=== PATIENT | female | born 1990 | race Two or more races ===

== ENCOUNTER 2025-07-24 02:55 | Inpatient (IN) | payer MEDICAID, OTHER ==
[~2025-07-24] VITALS: Ht 177.8 cm; Wt 129.7 kg
--- NOTE | 2025-07-24 03:23 | ED.PDOC ---
General HPI Comments HPI: 35-year-old female who came to ER for flank pains. As of 9:00 p.m. last night, patient started having sharp right flank pains, radiating her suprapubic area, associated with nausea and vomiting. Denies any dysuria. Patient unsure if she is Past Medical History: Kidney infection, Colitis Surgical History: Denies Family History: Denies Personal and Social History: Denies BROWNE: FLANK PAIN HPI: Poor Historian. REVIEW OF SYSTEMS: CONSTITUTIONAL: Denies acute: fever, diaphoresis, chills, generalized weakness. HEAD: Denies acute: headache, photophobia Eyes: Denies acute: Double vision, vision loss, eye pain, eye discharge. EARS: Denies acute: tinnitus, hearing loss, ear discharge, ear pain, THROAT: Denies acute: sore throat, swelling, difficulty swallowing , pain with swallowing, change in voice. NECK: Denies acute: neck pain, neck swelling, stiff neck. HEART: Denies acute : chest pain, palpitations, LUNGS: Denies acute: SOB, wheezing, cough, hemoptysis ABDOMEN: Denies acute: , diarrhea, melena , hematemesis, hematochezia SKIN: Denies acute: rash, redness, lesions, itchiness. EXTREMITIES: Denies acute: calf pain, numbness, tingling, weakness, denies pain in extremity. Denies acute: Low back pain. Neuro: Denies acute: focal neurological deficit, motor or sensory focal neurological deficit, tremors, seizure like activity, confusion, dizziness, change in mental status, loss of bowel or bladder function, cauda equina like symptoms. : Denies acute: dysuria, hematuria, , increase in urinary frequency. PSYCH: Denies acute: hallucination, suicidal ideation, homicidal ideation. FEMALE: Denies acute: abnormal vaginal bleeding, foul odor, unusual discharge. PHYSICAL EXAM: General: ----moderate----acute distress, awake and alert. Head: normocephalic, atraumatic. No raccoon's eyes, no altamirano sign. Neck: supple, trachea is midline, no swelling. Throat: Normal phonation. Eyes:, no erythema, no purulent discharge, no proptosis, no icterus. Heart: regular rate, regular rhythm, no significant murmur appreciated. Lungs: no apparent respiratory distress, Able to speak in full sentences. No wheezing, no rhonchi, no crackles. No stridors Clear to auscultation bilaterally. Abdomen: Right mid abdomen tender to palpation, non distended, soft, no guarding, no rebound, + bowel sounds. Obese Neuro: Awake, Alert, oriented to name, self, situation, follows commands GCS=15. Speech is normal. Skin: no petechia, no purpura, no cyanosis, non-pale, not jaundice. Lower extremities: --no - Pitting edema no deformity, no focal swelling, no calf TTP. Makes eye contact. moves all four extremities. Face: no apparent facial droop. Right CVA tenderness to percussion . Ambulating in the ED independently. ED COURSE: DISCLAIMER: This medical document was created using an electronic medical record system with voice recognition software and computerized dictation system. Although this document has been carefully reviewed, there might still be some phonetic and typographical errors. Occasional wrong-word or "sound-alike" substitutions may have occurred due to the inherent limitations of voice recognition software. These areas are purely typographical due to imperfections of the software programs and do not reflect any compromise in the patient's medical care. Please read the chart carefully and recognize, using context, where these substitutions have occurred. Chief Complaint: Flank Pain Time Seen by MD: 03:20 Reviewed notes: Nurses Notes, Allergies Allergies: Coded Allergies: NO KNOWN ALLERGIES (Unverified , 07/24/25) Information Source: Patient Mode of Arrival: Ambulatory Was a procedure done? Was a procedure done?: No Differential Diagnosis Kidney stone (Female): Other (Flank Pain;DDX include Nephrolethiasis, obstructive uropathy, kidney cancer, renal infarct, intraabdominal neoplasm, lower lobe pneumonia, retroperitoneal hemorrhage, pancreatitis, aneurysm, dissection, musculoskeletal, rib contusion/trauma, hematoma, PYLONEPHRITIS, muscle strain, spinal disease. IN A FEMALE) X-Ray, Labs, Meds, VS Vital Signs Date Time Temp Pulse Resp B/P (MAP) Pulse Ox O2 Delivery O2 Flow Rate FiO2 07/24/25 02:59 98.2 84 25 159/99 98 98.2 Lab Test 07/24/25 03:56 07/24/25 03:17 Range/Units Urine Color Yellow Yellow Urine Clarity Turbid H Clear Urine pH 5.5 5.0-9.0 Urine Specific [place] 1.030 1.001-1.035 Urine Protein Trace H Negative Urine Ketones Negative Negative Urine Blood Trace H Negative /uL Urine Nitrite Negative Negative Urine Bilirubin Negative Negative Urine Urobilinogen Normal Negative mg/dL Urine Leukocyte Esterase Negative Negative /uL Urine RBC 5 0 - 4 /hpf Urine Microscopic WBC 5 0-5 /HPF Urine Squamous Epithelial Cells Mod <5 /hpf Urine Bacteria None seen None Seen /hpf Urine Mucus Few None Seen Urine Glucose Normal Normal mg/dL Urine Test Negative Negative White Blood Count 12.7 H 4.4-10.8 10^3/uL Red Blood Count 5.03 4.0-5.20 10^6/uL Hemoglobin 15.0 12.2-16.2 g/dL Hematocrit 44.7 36.0-46.0 % Mean Corpuscular Volume 88.7 80.0-100.0 fL Mean Corpuscular Hemoglobin 29.9 28.0-32.0 pg Mean Corpuscular Hemoglobin Concent 33.7 32.0-36.0 g/dL Red Cell Distribution Width 12.3 11.8-14.3 % Platelet Count 291 140-450 10^3/uL Mean Platelet Volume 8.7 6.9-10.8 fL Neutrophils (%) (Auto) 63.8 37.0-80.0 % Lymphocytes (%) (Auto) 25.8 10.0-50.0 % Monocytes (%) (Auto) 8.9 0.0-12.0 % Eosinophils (%) (Auto) 1.1 0.0-7.0 % Basophils (%) (Auto) 0.4 0.0-2.0 % Neutrophils # (Auto) 8.1 1.6-8.6 10 ^3/uL Lymphocytes # (Auto) 3.3 0.4-5.4 10 ^3/uL Monocytes # (Auto) 1.1 0-1.3 10 ^3/uL Eosinophils # (Auto) 0.1 0-0.8 10 ^3/uL Basophils # (Auto) 0 0-0.2 10 ^3/uL Nucleated Red Blood Cells 0.0 % Sodium Level 143 136-145 mmol/L Potassium Level 4.2 3.5-5.1 mmol/L Chloride Level 107 98-107 mmol/L Carbon Dioxide Level 25 20-31 mmol/L Anion Gap 11 5-15 Blood Urea Nitrogen 12 9-23 mg/dL Creatinine 0.88 0.550-1.02 mg/dL Glomerular Filtration Rate Calc 89 >90 mL/min BUN/Creatinine Ratio 13.6 10.0-20.0 Serum Glucose 108 H 74-106 mg/dL Lactic Acid Level 1.6 0.4-2.0 mmol/L Calcium Level 9.4 8.7-10.4 mg/dL Total Bilirubin 0.5 0.2-1.0 mg/dL Aspartate Amino Transferase (AST) 27 13-40 U/L Alanine Aminotransferase (ALT) 63 H 7-40 U/L Alkaline Phosphatase 79 46-116 U/L Total Protein 7.8 5.7-8.2 g/dL Albumin 4.7 3.2-4.8 g/dL Current Medications Medications (Trade) Dose Ordered Sig/Mallory Route Start Time Stop Time Status Last Admin Acetaminophen/ Hydrocodone Bitart ([place] 5/325MG Tab) 1 tab ONCE ONCE PO 07/24/25 04:00 07/24/25 04:01 DC 07/24/25 05:25 [place] [address] Ph: [phone] DIAGNOSTIC IMAGING Diagnostic Imaging Report : [id number] Signed PATIENT: ANNIE BROWNE ACCT: [id number] UNIT: [id number] : 1990 LOC: ER ROOM / BED: / AGE / SEX: 35 / F ADM STATUS: REG ER SERVICE ORDERING PHYSICIAN: RICARDO HERNANDEZ DO PROCEDURE(s): ABPL - CT AB PEL WO CON-NO ORAL OR IV REASON: R FLANK/R ABD PAIN ORDER NUMBER(s): [id number], ACCESSION NUMBER(s): [id number] Exam: CT CT AB PEL WO CON-NO ORAL OR IV History: R FLANK/R ABD PAIN Comparison Study: None Technique: Multidetector spiral CT of the chest, abdomen and pelvis was performed from lower neck to pubic symphysis Axial, coronal and sagittal multiplanar reformats were performed by the technologist on a separate work station. Radiation Dose : 1. Chest/Abdomen/Pelvis: CTDIvol 23.92 mGy, DLP 1683.14 mGy*cm. Findings: Lower neck: Normal thyroid. Lungs: No focal consolidation, pleural effusion or pneumothorax. Right lower lobe calcified granuloma. Heart/Vascular Structures: Normal heart size. No pericardial effusion. Lymph Nodes: No adenopathy Pleura: No pleural effusion or significant pneumothorax. Liver: The liver is enlarged, measuring 21.8 cm in craniocaudal dimension. No focal lesions. Normal hepatic vascular enhancement. Gallbladder and Biliary Tree: Unremarkable Spleen: Unremarkable Pancreas: The pancreas is normal in appearance without focal lesions or abnormal enhancement. Adrenal Glands: Unremarkable Kidneys: Moderate right hydronephrosis secondary to a partially obstructing 8 mm proximal ureterolith. No evidence of left hydronephrosis. Punctate nonobstructing left inferior pole pelvocaliceal calculus. 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 Bladder: Unremarkable Bowel: The stomach is grossly normal in appearance. Small bowel and colon are normal in caliber and distribution. The appendix is normal. Ascites: Absent Lymphadenopathy: No mesenteric, retroperitoneal or periportal lymphadenopathy. Abdominal Wall and Mesentery: Unremarkable. Vasculature: The visualized abdominal aorta is normal in size and caliber. Abdominal and pelvic vessels demonstrate normal enhancement. Pelvic Organs: Unremarkable Musculoskeletal: No aggressive focal bony lesions, acute fractures or dislocation. IMPRESSION: 1. Moderate right hydronephrosis secondary to a partially obstructing 8 mm proximal ureterolith. 2. Nonobstructing left nephrolithiasis. 3. 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 4. Hepatomegaly. ATED BY: WILLIAM CASTELLANOS MD DICTATED DATE/TIME: 07/24/25533 SIGNED BY: WILLIAM CASTELLANOS MD SIGNED DATE/TIME: 07/24/25533 CC: Time of 1ST Reevaluation: 03:20 Reevaluation 1ST: Unchanged Patient Education/Counseling: Diagnosis, Treatment Family Education/Counseling: Diagnosis, Treatment Comments MDM: patient presented with the above HPI.---flank pain---workup was initiated. patient was found with the above mentioned diagnosis. the following medications were ordered: please refer to order lists of meds and tests obtained by myself Dr. Hernandez. Patient ED course and VS have been stabilized. Patient has been reassessed in the ED and remained in a stable condition. Pertinent incidental findings were discussed with the patient and/or family. Patient/family voices understanding and is agreeable with plan. Patient has been observed in the ED adequate length of time to insure improvement/stability. Escalation of care considered: Consideration of escalation to observation or admission Patient was given fluids, [place], Toradol, Flomax, antibiotics. Patient was ADMITTED to the medicine team for further evaluation and treatment of their presentation. All the reports of any imaging studies that were ordered by myself were reviewed by myself. SEPSIS Sepsis Screen Date sepsis recognized/suspect: Jul 24, 2025 Time Sepsis recognized/suspect: 302 Recent Procedure: No On Antibiotic Therapy: No Respiratory Rate >20: Yes Heart Rate >90: No Temp<36 C (96.8 F) or >38.3 C: No SBP <90 or MAP <65 mmHG: No New Acute Mental Status Change: No Is the patient on CPAP, BIPAP,: No Physician Orders Senior Games Technician (07/24/25 ) Heplock Iv (07/24/25 ) Ct Ab Pel Wo Con-No Oral Or Iv (07/24/25 03:16) Ceftriaxone 1gm/50ml (Rocephin) (07/24/25 06:00) Tamsulosin Hydrochloride (Flomax) (07/24/25 06:00) Ketorolac Injection (Toradol Injection) (07/24/25 06:00) Vital Signs Date Time Temp Pulse Resp B/P (MAP) Pulse Ox O2 Delivery O2 Flow Rate FiO2 07/24/25 02:59 98.2 84 25 159/99 98 98.2 Laboratory Tests Test 07/24/25 03:17 Lactic Acid Level 1.6 mmol/L (0.4-2.0) White Blood Count 12.7 10^3/uL (4.4-10.8) H Medications Medications Dose Ordered Sig/Mallory Route Start Time Stop Time Status Last Admin Dose Admin Acetaminophen/ Hydrocodone Bitart 1 tab ONCE ONCE PO 07/24/25 04:00 07/24/25 04:01 DC 07/24/25 05:25 Departure 1 Departure Time of Disposition: 05:47 Impression: Primary Impression: Hydronephrosis with obstructing calculus Disposition: ADMITTED INPATIENT Admit to: Tele Condition: Guarded Discharged With: Self Critical Care Note Critical Care Time?: No I personally scribed for RICARDO HERNANDEZ DO ([facility]) on 07/24/25 at 03:23. Electronically submitted by Nikita Smith ([facility]). I personally scribed for RICARDO HERNANDEZ DO ([email or web address]) on 07/24/25 at 05:45. Electronically submitted by Nikita Smith ([facility]). RICARDO HERNANDEZ DO Jul 24, 2025 03:23
[2025-07-24 04:02] LABS: Hematocrit 44.7 % (36.0-46.0); Hemoglobin 15.0 g/dL (12.2-16.2); Mean Corpuscular Hemoglobin 29.9 pg (28.0-32.0); Mean Corpuscular Volume 88.7 fL (80.0-100.0); Nucleated Red Blood Cells % 0.0 %
[2025-07-24 04:12] LABS: Albumin 4.7 g/dL (3.2-4.8); Alkaline Phosphatase 79 U/L (46-116); Anion Gap 11 (5-15); BUN/Creatinine Ratio 13.6 (10.0-20.0); Bilirubin, Total 0.5 mg/dL (0.2-1.0); Blood Urea Nitrogen 12 mg/dL (9-23); Calcium 9.4 mg/dL (8.7-10.4); Carbon Dioxide 25 mmol/L (20-31); Chloride 107 mmol/L (98-107); Potassium 4.2 mmol/L (3.5-5.1); Sodium 143 mmol/L (136-145); Total Protein 7.8 g/dL (5.7-8.2)
[2025-07-24 04:13] LABS: Alanine Aminotransferase 63 U/L (7-40); Glucose 108 mg/dL (74-106)
[2025-07-24 04:32] LABS: Urine Protein, UAD TRACE (Negative)
[2025-07-24] MEDS: IOHEXOL 300 MG/ML 100ML BOTTLE IJ ONE (04:37)
[2025-07-24] MEDS: HYDROcodone-ACET 5/325MG TAB PO ONE (05:25)
--- NOTE | 2025-07-24 05:36 | DVH ---
Exam: CT CT AB PEL WO CON-NO ORAL OR IV History: R FLANK/R ABD PAIN Comparison Study: None Technique: Multidetector spiral CT of the chest, abdomen and pelvis was performed from lower neck to pubic symphysis Axial, coronal and sagittal multiplanar reformats were performed by the technologist on a separate workstation. Radiation Dose : 1. Chest/Abdomen/Pelvis: CTDIvol 23.92 mGy, DLP 1683.14 mGy*cm. Findings: Lower neck: Normal thyroid. Lungs: No focal consolidation, pleural effusion or pneumothorax. Right lower lobe calcified granuloma. Heart/Vascular Structures: Normal heart size. No pericardial effusion. Lymph Nodes: No adenopathy Pleura: No pleural effusion or significant pneumothorax. Liver: The liver is enlarged, measuring 21.8 cm in craniocaudal dimension. No focal lesions. Normal hepatic vascular enhancement. Gallbladder and Biliary Tree: Unremarkable Spleen: Unremarkable Pancreas: The pancreas is normal in appearance without focal lesions or abnormal enhancement. Adrenal Glands: Unremarkable Kidneys: Moderate right hydronephrosis secondary to a partially obstructing 8 mm proximal ureterolith. No evidence of left hydronephrosis. Punctate nonobstructing left inferior pole pelvocaliceal calculus. 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 Bladder: Unremarkable Bowel: The stomach is grossly normal in appearance. Small bowel and colon are normal in caliber and distribution. The appendix is normal. Ascites: Absent Lymphadenopathy: No mesenteric, retroperitoneal or periportal lymphadenopathy. Abdominal Wall and Mesentery: Unremarkable. Vasculature: The visualized abdominal aorta is normal in size and caliber. Abdominal and pelvic vessels demonstrate normal enhancement. Pelvic Organs: Unremarkable Musculoskeletal: No aggressive focal bony lesions, acute fractures or dislocation. IMPRESSION: 1. Moderate right hydronephrosis secondary to a partially obstructing 8 mm proximal ureterolith. 2. Nonobstructing left nephrolithiasis. 3. 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 4. Hepatomegaly.
[2025-07-24] MEDS: SODIUM CHLORIDE 0.9% 1,000 ML IV ONE ×2 (06:01→06:32)
[2025-07-24] MEDS: TAMSULOSIN HYDROCHLORIDE 0.4 MG CAP PO ONE ×3 (06:11→14:49)
[2025-07-24] MEDS: ONDANSETRON HCL 4 MG/2 ML VIAL IV ONE (06:32)
[2025-07-24] MEDS: fentaNYL CITRATE 100 MCG/2 ML VL IV ONE (06:33)
[2025-07-24] MEDS: KETOROLAC TROMETH 30 MG/ML 1ML VIAL IV ONE (06:33)
[2025-07-24] MEDS ORDERED: ENAL1TAB47 PO (10:45)
[2025-07-24] MEDS ORDERED: ACETAMINOPHEN 325 MG TAB PO PRN (10:45)
[2025-07-24] MEDS ORDERED: BISO5TAB44 PO (10:45)
--- NOTE | 2025-07-24 10:59 | DVHHP2 ---
History of Present Illness Reason for Visit: Right flank pain History of Present Illness Krys Carolina is a 35-year-old female with past medial history of hypertension, who came to the hospital due to right flank pain. Patient states her pain came on suddenly last night about 2100 with associated nausea and vomiting. She describes it as sharp pain to her right flank that radiates to her right pelvic area. Cardiovascular: HTN Past Surgical History: None Smoke: No ALCOHOL: none Drugs: None Lives: with Family Domestic Violence: Neg Review of Systems Constitutional: No: Fever, Chills, Sweats, Weakness, Malaise, Other Eyes: No: Pain, Vision change, Conjunctivae inflammation, Eyelid inflammation, Other, Redness ENT: No: Ear pain, Ear discharge, Nose pain, Nose discharge, Nose congestion, Mouth pain, Mouth swelling, Throat pain, Throat swelling, Other Respiratory: No: Cough, Dry, Shortness of breath, SOB with excertion, Wheezing, Hemoptysis, Pleuritic Pain, Sputum, Wheezing, Other Cardiovascular: No: Chest Pain, Palpitations, Orthopnea, Paroxysmal Noc. Dyspnea, Edema, Lt Headedness, Other Gastrointestinal: Abdominal Pain (pelvic); No: Nausea, Vomiting, Diarrhea, Constipation, Melena, Hematochezia, Other Genitourinary: No Dysuria, No Frequency, No Incontinence, No Hematuria, No Retention, No Other Musculoskeletal: back pain (right flank); No: other, neck pain, shoulder pain, arm pain, hand pain, leg pain, foot pain Skin: No: Rash, Lesions, Jaundice, Bruising, Other Neurological: No: Weakness, Numbness, Incoordination, Change in speech, Confusion, Seizures, Other Allergies: Coded Allergies: NO KNOWN ALLERGIES (Unverified , 07/24/25) Medications Current Medications Medications Dose Ordered Sig/Mallory Route Start Time Stop Time Status Last Admin Dose Admin Acetaminophen/ Hydrocodone Bitart 1 tab Q4HP PRN PO 07/24/25 10:45 Ondansetron HCl 4 mg Q4HP PRN IV 07/24/25 10:45 UNV Acetaminophen 650 mg Q6HP PRN PO 07/24/25 10:45 Exam Vital Signs Vital Signs Date Time Temp Pulse Resp B/P (MAP) Pulse Ox O2 Delivery O2 Flow Rate FiO2 07/24/25 10:16 98.5 66 18 133/84 (100) 100 98.5 07/24/25 05:25 Room Air General Appearance: Alert, Oriented X3, Cooperative, moderate distress HEENT: Atraumatic, PERRLA Respiratory: Clear to auscultation, Normal air movement Cardiovascular: Regular rate, Normal S1, Normal S2, No murmurs Abdominal: Normal bowel sounds, Soft, Other (right flank and pelvic tenderness) Extremities: No clubbing, No cyanosis, No edema, Normal pulses, No tenderness/swelling Skin: No rashes, No breakdown, No significant lesion Neuro: Normal gait, Normal speech, Strength at 5/5 X4 ext Psych/Mental Status: Mental status NL, Mood NL Labs/Xrays Labs Test 07/24/25 03:56 07/24/25 03:17 Range/Units Urine Color Yellow Yellow Urine Clarity Turbid H Clear Urine pH 5.5 5.0-9.0 Urine Specific [place] 1.030 1.001-1.035 Urine Protein Trace H Negative Urine Ketones Negative Negative Urine Blood Trace H Negative /uL Urine Nitrite Negative Negative Urine Bilirubin Negative Negative Urine Urobilinogen Normal Negative mg/dL Urine Leukocyte Esterase Negative Negative /uL Urine RBC 5 0 - 4 /hpf Urine Microscopic WBC 5 0-5 /HPF Urine Squamous Epithelial Cells Mod <5 /hpf Urine Bacteria None seen None Seen /hpf Urine Mucus Few None Seen Urine Glucose Normal Normal mg/dL Urine Test Negative Negative White Blood Count 12.7 H 4.4-10.8 10^3/uL Red Blood Count 5.03 4.0-5.20 10^6/uL Hemoglobin 15.0 12.2-16.2 g/dL Hematocrit 44.7 36.0-46.0 % Mean Corpuscular Volume 88.7 80.0-100.0 fL Mean Corpuscular Hemoglobin 29.9 28.0-32.0 pg Mean Corpuscular Hemoglobin Concent 33.7 32.0-36.0 g/dL Red Cell Distribution Width 12.3 11.8-14.3 % Platelet Count 291 140-450 10^3/uL Mean Platelet Volume 8.7 6.9-10.8 fL Neutrophils (%) (Auto) 63.8 37.0-80.0 % Lymphocytes (%) (Auto) 25.8 10.0-50.0 % Monocytes (%) (Auto) 8.9 0.0-12.0 % Eosinophils (%) (Auto) 1.1 0.0-7.0 % Basophils (%) (Auto) 0.4 0.0-2.0 % Neutrophils # (Auto) 8.1 1.6-8.6 10 ^3/uL Lymphocytes # (Auto) 3.3 0.4-5.4 10 ^3/uL Monocytes # (Auto) 1.1 0-1.3 10 ^3/uL Eosinophils # (Auto) 0.1 0-0.8 10 ^3/uL Basophils # (Auto) 0 0-0.2 10 ^3/uL Nucleated Red Blood Cells 0.0 % Sodium Level 143 136-145 mmol/L Potassium Level 4.2 3.5-5.1 mmol/L Chloride Level 107 98-107 mmol/L Carbon Dioxide Level 25 20-31 mmol/L Anion Gap 11 5-15 Blood Urea Nitrogen 12 9-23 mg/dL Creatinine 0.88 0.550-1.02 mg/dL Glomerular Filtration Rate Calc 89 >90 mL/min BUN/Creatinine Ratio 13.6 10.0-20.0 Serum Glucose 108 H 74-106 mg/dL Lactic Acid Level 1.6 0.4-2.0 mmol/L Calcium Level 9.4 8.7-10.4 mg/dL Total Bilirubin 0.5 0.2-1.0 mg/dL Aspartate Amino Transferase (AST) 27 13-40 U/L Alanine Aminotransferase (ALT) 63 H 7-40 U/L Alkaline Phosphatase 79 46-116 U/L Total Protein 7.8 5.7-8.2 g/dL Albumin 4.7 3.2-4.8 g/dL Exam: CT CT AB PEL WO CON-NO ORAL OR IV Findings: Lower neck: Normal thyroid. Lungs: No focal consolidation, pleural effusion or pneumothorax. Right lower lobe calcified granuloma. Heart/Vascular Structures: Normal heart size. No pericardial effusion. Lymph Nodes: No adenopathy Pleura: No pleural effusion or significant pneumothorax. Liver: The liver is enlarged, measuring 21.8 cm in craniocaudal dimension. No focal lesions. Normal hepatic vascular enhancement. Gallbladder and Biliary Tree: Unremarkable Spleen: Unremarkable Pancreas: The pancreas is normal in appearance without focal lesions or abnormal enhancement. Adrenal Glands: Unremarkable Kidneys: Moderate right hydronephrosis secondary to a partially obstructing 8 mm proximal ureterolith. No evidence of left hydronephrosis. Punctate nonobstructing left inferior pole pelvocaliceal calculus. 1.4 cm probable a ngiomyolipoma within the right superior pole. Bladder: Unremarkable Bowel: The stomach is grossly normal in appearance. Small bowel and colon are normal in caliber and distribution. The appendix is normal. Ascites: Absent Lymphadenopathy: No mesenteric, retroperitoneal or periportal lymphadenopathy. Abdominal Wall and Mesentery: Unremarkable. Vasculature: The visualized abdominal aorta is normal in size and caliber. Abdominal and pelvic vessels demonstrate normal enhancement. Pelvic Organs: Unremarkable Musculoskeletal: No aggressive focal bony lesions, acute fractures or dislocation. IMPRESSION: 1. Moderate right hydronephrosis secondary to a partially obstructing 8 mm proximal ureterolith. 2. Nonobstructing left nephrolithiasis. 3. 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 4. Hepatomegaly. SEPSIS Sepsis Screen Date sepsis recognized/suspect: Jul 24, 2025 Time Sepsis recognized/suspect: 0303 Recent Procedure: No On Antibiotic Therapy: No Respiratory Rate >20: Yes Heart Rate >90: No Temp<36 C (96.8 F) or >38.3 C: No SBP <90 or MAP <65 mmHG: No New Acute Mental Status Change: No Is the patient on CPAP, BIPAP,: No Physician Orders Waiter/Waitress Third Class (07/24/25 ) Heplock Iv (07/24/25 ) Ct Ab Pel Wo Con-No Oral Or Iv (07/24/25 03:16) Admit (07/24/25 10:42) Code Status (07/24/25 10:42) 2 Gm Sodium Diet (07/24/25 Lunch) Hydrocodone-Acet 5/325mg Tab ([place] 5/32 (07/24/25 10:45) Ondansetron Hcl (Zofran) (07/24/25 10:45) Complete Blood Count (07/25/25 04:00) Comprehensive Metabolic Panel (07/25/25 04:00) Condition: Serious (07/24/25 10:42) Acetaminophen Tablet (Tylenol Tablet) (07/24/25 10:45) Enalapril Tablet (Vasotec Tablet) (07/25/25 10:00) (Nf) Bisoprolol Fumarate (07/25/25 10:00) Vital Signs Date Time Temp Pulse Resp B/P (MAP) Pulse Ox O2 Delivery O2 Flow Rate FiO2 07/24/25 10:16 98.5 66 18 133/84 (100) 100 98.5 07/24/25 07:38 97.8 68 18 136/82 (100) 100 97.8 07/24/25 06:33 141/92 07/24/25 05:25 98.3 76 17 148/91 (110) 97 98.3 07/24/25 05:25 76 17 97 Room Air 07/24/25 02:59 98.2 84 25 159/99 98 98.2 Laboratory Tests Test 07/24/25 03:17 Lactic Acid Level 1.6 mmol/L (0.4-2.0) White Blood Count 12.7 10^3/uL (4.4-10.8) H Medications Medications Dose Ordered Sig/Mallory Route Start Time Stop Time Status Last Admin Dose Admin Acetaminophen/ Hydrocodone Bitart 1 tab ONCE ONCE PO 07/24/25 04:00 07/24/25 04:01 DC 07/24/25 05:25 1 TAB Ceftriaxone Sodium 50 ml @ 100 mls/hr ONCE ONCE IV 07/24/25 06:00 07/24/25 06:29 DC 07/24/25 06:32 100 MLS/HR Fentanyl Citrate 100 mcg ONCE ONCE IV 07/24/25 06:00 07/24/25 06:01 DC 07/24/25 06:33 100 MCG Ketorolac Tromethamine 30 mg ONCE ONCE IV 07/24/25 06:00 07/24/25 06:01 DC 07/24/25 06:33 30 MG Ondansetron HCl 8 mg ONCE ONCE IV 07/24/25 03:30 07/24/25 03:31 DC 07/24/25 06:32 8 MG Sodium Chloride 1,000 ml @ 1,000 mls/hr Q1H ONCE IV 07/24/25 03:15 07/24/25 04:14 DC 07/24/25 06:01 1,000 MLS/HR Sodium Chloride 1,000 ml @ 1,000 mls/hr Q1H ONCE IV 07/24/25 03:30 07/24/25 04:29 DC 07/24/25 06:32 1,000 MLS/HR Tamsulosin HCl 0.4 mg ONCE ONCE PO 07/24/25 06:00 07/24/25 06:01 DC 07/24/25 06:11 0.4 MG Assessment/Plan Assessment/Plan Assessment: Hydronephrosis with obstructing calculus, Leukocytosis, UTI, Hypertension, Plan: Admit to Med-Surg, Uronology consult, Consider an IR consult, IV hydration, IV antibiotics, Pain management, Flomax, Home medications reconciled, Plan discussed with: Patient, Spouse My Orders Orders - LYNETTE ORTIZ Procedure Category Date Status Time Admit ADMIT 07/24/25 Transmitted 10:42 Code Status CODE 07/24/25 Transmitted 10:42 2 Gm Sodium Diet DIET 07/24/25 Transmitted Lunch Hydrocodone-Acet PHA 07/24/25 In Process 5/325mg Tab ([place] 10:45 Ondansetron Hcl PHA 07/24/25 Logged (Zofran) 10:45 Complete Blood Count LAB 07/25/25 Verified 04:00 Comprehensive LAB 07/25/25 Verified Metabolic Panel 04:00 Condition: Serious BOYD 07/24/25 In Process 10:42 Acetaminophen Tablet PHA 07/24/25 In Process (Tylenol Tablet) 10:45 Enalapril Tablet PHA 07/25/25 Verified (Vasotec Tablet) 10:00 (Nf) Bisoprolol PHA 07/25/25 Verified Fumarate 10:00 Date of Service: Jul 24, 2025 Billing Provider: LYNETTE ORTIZ Common Visit Codes: [id number] INP/OBS CARE (MOD) LYNETTE ORTIZ Jul 24, 2025 10:59
[2025-07-24] MEDS: SODIUM CHLORIDE 0.9% 1,000 ML IV SCH (11:00)
[2025-07-24 11:36] VITALS: BP 133/67; PULSE 67; RESP 18; TEMP 97.7; O2SAT 97
[2025-07-24 12:48] VITALS: BP 126/65; PULSE 68; RESP 18; TEMP 98; O2SAT 99
--- NOTE | 2025-07-24 15:42 | DVHINCON2 ---
Date of service: Jul 24, 2025 Referring Physician Hospitalist Reason for Consultation "Hydronephrosis" History of Present Illness 35-year-old female with past medial history of hypertension, who came to the hospital due to right flank pain. Patient states her pain came on suddenly last night about 2100 with associated nausea and vomiting. She describes it as sharp pain to her right flank that radiates to her right pelvic area. CT Scan confirms 8 mm right proximal ureteral stone with mild/moderate hydronephrosis. Past Medical History Cardiovascular: HTN Allergies: Coded Allergies: NO KNOWN ALLERGIES (Unverified , 07/24/25) Home Meds Reported Medications Bisoprolol Fumarate (Bisoprolol Fumarate) 5 Mg Tab, 0.5 TAB PO DAILY PRN, #30 TAB 5 Refills 07/24/25 Enalapril Maleate (Enalapril Maleate) 10 Mg Tab, 10 MG PO DAILY, TAB 07/24/25 Current Medications Current Medications Medications (Trade) Dose Ordered Sig/Mallory Route PRN Reason Start Time Stop Time Status Last Admin Acetaminophen/ Hydrocodone Bitart ([place] 5/325MG Tab) 1 tab Q4HP PRN PO MODERATE PAIN (4-6 PAIN SCALE) 07/24/25 10:45 Ondansetron HCl (Zofran) 4 mg Q4HP PRN IV NAUSEA / VOMITING 07/24/25 10:45 Acetaminophen (Tylenol Tablet) 650 mg Q6HP PRN PO PAIN SCALE 1-3 OR TEMP>100.4 07/24/25 10:45 Enalapril Maleate (Vasotec Tablet) 10 mg DAILY PO 07/25/25 10:00 Patient Own Medication 0.5 tab DAILY PO 07/25/25 10:00 Ceftriaxone Sodium 50 ml @ 100 mls/hr DAILY@09 IV 07/25/25 09:00 Sodium Chloride 1,000 ml @ 125 mls/hr Q8H IV 07/24/25 11:00 07/24/25 11:00 Tamsulosin HCl (Flomax) 0.4 mg QPM PO 07/25/25 18:00 Metoclopramide HCl (Reglan Injection) 10 mg Q6HPRN PRN IV NAUSEA / VOMITING 07/24/25 11:00 Ketorolac Tromethamine (Toradol Injection) 15 mg Q6HPRN PRN IV SEVERE PAIN (7-10 PAIN SCALE) 07/24/25 11:00 07/29/25 10:59 Review of Systems Constitutional: No: Fever, Chills, Sweats, Weakness, Malaise, Other Eyes: No: Pain, Vision change, Conjunctivae inflammation, Eyelid inflammation, Other, Redness ENT: No: Ear pain, Ear discharge, Nose pain, Nose discharge, Nose congestion, Mouth pain, Mouth swelling, Throat pain, Throat swelling, Other Respiratory: No: Cough, Dry, Shortness of breath, SOB with excertion, Wheezing, Hemoptysis, Pleuritic Pain, Sputum, Wheezing, Other Cardiovascular: No: Chest Pain, Palpitations, Orthopnea, Paroxysmal Noc. Dyspnea, Edema, Lt Headedness, Other Gastrointestinal: Abdominal Pain (pelvic); No: Nausea, Vomiting, Diarrhea, Constipation, Melena, Hematochezia, Other Genitourinary: No Dysuria, No Frequency, No Incontinence, No Hematuria, No Retention, No Other Musculoskeletal: back pain (right flank); No: other, neck pain, shoulder pain, arm pain, hand pain, leg pain, foot pain Skin: No: Rash, Lesions, Jaundice, Bruising, Other Neurological: No: Weakness, Numbness, Incoordination, Change in speech, Confusion, Seizures, Other Allergies: Coded Allergies: NO KNOWN ALLERGIES (Unverified , 07/24/25) Medications Current Medications Medications Dose Ordered Sig/Mallory Route Start Time Stop Time Status Last Admin Dose Admin Acetaminophen/ Hydrocodone Bitart 1 tab Q4HP PRN PO 07/24/25 10:45 Ondansetron HCl 4 mg Q4HP PRN IV 07/24/25 10:45 UNV Acetaminophen 650 mg Q6HP PRN PO 07/24/25 10:45 Vital Signs Vital Signs Date Time Temp Pulse Resp B/P (MAP) Pulse Ox O2 Delivery O2 Flow Rate FiO2 07/24/25 12:48 98.0 68 18 126/65 (85) 99 98.0 07/24/25 05:25 Room Air Physical Exam Vital Signs Date Time Temp Pulse Resp B/P (MAP) Pulse Ox O2 Delivery O2 Flow Rate FiO2 07/24/25 10:16 98.5 66 18 133/84 (100) 100 98.5 07/24/25 05:25 Room Air General Appearance: Alert, Oriented X3, Cooperative, moderate distress HEENT: Atraumatic, PERRLA Respiratory: Clear to auscultation, Normal air movement Cardiovascular: Regular rate, Normal S1, Normal S2, No murmurs Abdominal: Normal bowel sounds, Soft, Other (right flank and pelvic tenderness) Extremities: No clubbing, No cyanosis, No edema, Normal pulses, No tenderness/swelling Skin: No rashes, No breakdown, No significant lesion Neuro: Normal gait, Normal speech, Strength at 5/5 X4 ext Psych/Mental Status: Mental status NL, Mood NL Labs/Diagnostic Data Labs Test 07/24/25 03:56 07/24/25 03:17 Range/Units Urine Color Yellow Yellow Urine Clarity Turbid H Clear Urine pH 5.5 5.0-9.0 Urine Specific [place] 1.030 1.001-1.035 Urine Protein Trace H Negative Urine Ketones Negative Negative Urine Blood Trace H Negative /uL Urine Nitrite Negative Negative Urine Bilirubin Negative Negative Urine Urobilinogen Normal Negative mg/dL Urine Leukocyte Esterase Negative Negative /uL Urine RBC 5 0 - 4 /hpf Urine Microscopic WBC 5 0-5 /HPF Urine Squamous Epithelial Cells Mod <5 /hpf Urine Bacteria None seen None Seen /hpf Urine Mucus Few None Seen Urine Glucose Normal Normal mg/dL Urine Test Negative Negative White Blood Count 12.7 H 4.4-10.8 10^3/uL Red Blood Count 5.03 4.0-5.20 10^6/uL Hemoglobin 15.0 12.2-16.2 g/dL Hematocrit 44.7 36.0-46.0 % Mean Corpuscular Volume 88.7 80.0-100.0 fL Mean Corpuscular Hemoglobin 29.9 28.0-32.0 pg Mean Corpuscular Hemoglobin Concent 33.7 32.0-36.0 g/dL Red Cell Distribution Width 12.3 11.8-14.3 % Platelet Count 291 140-450 10^3/uL Mean Platelet Volume 8.7 6.9-10.8 fL Neutrophils (%) (Auto) 63.8 37.0-80.0 % Lymphocytes (%) (Auto) 25.8 10.0-50.0 % Monocytes (%) (Auto) 8.9 0.0-12.0 % Eosinophils (%) (Auto) 1.1 0.0-7.0 % Basophils (%) (Auto) 0.4 0.0-2.0 % Neutrophils # (Auto) 8.1 1.6-8.6 10 ^3/uL Lymphocytes # (Auto) 3.3 0.4-5.4 10 ^3/uL Monocytes # (Auto) 1.1 0-1.3 10 ^3/uL Eosinophils # (Auto) 0.1 0-0.8 10 ^3/uL Basophils # (Auto) 0 0-0.2 10 ^3/uL Nucleated Red Blood Cells 0.0 % Sodium Level 143 136-145 mmol/L Potassium Level 4.2 3.5-5.1 mmol/L Chloride Level 107 98-107 mmol/L Carbon Dioxide Level 25 20-31 mmol/L Anion Gap 11 5-15 Blood Urea Nitrogen 12 9-23 mg/dL Creatinine 0.88 0.550-1.02 mg/dL Glomerular Filtration Rate Calc 89 >90 mL/min BUN/Creatinine Ratio 13.6 10.0-20.0 Serum Glucose 108 H 74-106 mg/dL Lactic Acid Level 1.6 0.4-2.0 mmol/L Calcium Level 9.4 8.7-10.4 mg/dL Total Bilirubin 0.5 0.2-1.0 mg/dL Aspartate Amino Transferase (AST) 27 13-40 U/L Alanine Aminotransferase (ALT) 63 H 7-40 U/L Alkaline Phosphatase 79 46-116 U/L Total Protein 7.8 5.7-8.2 g/dL Albumin 4.7 3.2-4.8 g/dL PATIENT: ANNIE BROWNE ACCT: [id number] UNIT: [id number] : 1990 LOC: ER ROOM / BED: / AGE / SEX: 35 / F ADM STATUS: REG ER SERVICE [id number] ORDERING PHYSICIAN: RICARDO HERNANDEZ DO PROCEDURE(s): ABPL - CT AB PEL WO CON-NO ORAL OR IV REASON: R FLANK/R ABD PAIN ORDER NUMBER(s): [id number], ACCESSION NUMBER(s): [id number] Exam: CT CT AB PEL WO CON-NO ORAL OR IV History: R FLANK/R ABD PAIN Comparison Study: None Technique: Multidetector spiral CT of the chest, abdomen and pelvis was performed from lower neck to pubic symphysis Axial, coronal and sagittal multiplanar reformats were performed by the technologist on a separate workstation. Radiation Dose : 1. Chest/Abdomen/Pelvis: CTDIvol 23.92 mGy, DLP 1683.14 mGy*cm. Findings: Lower neck: Normal thyroid. Lungs: No focal consolidation, pleural effusion or pneumothorax. Right lower lobe calcified granuloma. Heart/Vascular Structures: Normal heart size. No pericardial effusion. Lymph Nodes: No adenopathy Pleura: No pleural effusion or significant pneumothorax. Liver: The liver is enlarged, measuring 21.8 cm in craniocaudal dimension. No focal lesions. Normal hepatic vascular enhancement. Gallbladder and Biliary Tree: Unremarkable Spleen: Unremarkable Pancreas: The pancreas is normal in appearance without focal lesions or abnormal enhancement. Adrenal Glands: Unremarkable Kidneys: Moderate right hydronephrosis secondary to a partially obstructing 8 mm proximal ureterolith. No evidence of left hydronephrosis. Punctate nonobstructing left inferior pole pelvocaliceal calculus. 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 Bladder: Unremarkable Bowel: The stomach is grossly normal in appearance. Small bowel and colon are normal in caliber and distribution. The appendix is normal. Ascites: Absent Lymphadenopathy: No mesenteric, retroperitoneal or periportal lymphadenopathy. Abdominal Wall and Mesentery: Unremarkable. Vasculature: The visualized abdominal aorta is normal in size and caliber. Abdominal and pelvic vessels demonstrate normal enhancement. Pelvic Organs: Unremarkable Musculoskeletal: No aggressive focal bony lesions, acute fractures or dislocation. IMPRESSION: 1. Moderate right hydronephrosis secondary to a partially obstructing 8 mm proximal ureterolith. 2. Nonobstructing left nephrolithiasis. 3. 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 4. Hepatomegaly. ATED BY: WILLIAM CASTELLANOS MD DICTATED DATE/TIME: 07/24/25533 SIGNED BY: WILLIAM CASTELLANOS MD SIGNED DATE/TIME: 07/24/25533 CC: Assessment Right proximal ureteral stone, 8 mm Moderate right hydronephrosis Creatinine normal Slight elevated WBC UPT negative Plan/Recommendation Pain control Will plan for right ESWL, possible stent placement for Saturday07/26/25 Plan discussed with: Patient, Other SIDDHARTHA PENNY MD Jul 24, 2025 15:41
[2025-07-24 16:49] VITALS: BP 121/76; PULSE 75; RESP 18; TEMP 97.9; O2SAT 99
--- NOTE | 2025-07-24 17:09 | DVH ---
EXAM: US BLADDER INDICATION: check for right ureteral jetting TECHNIQUE: Grayscale and color Doppler sonographic imaging evaluation of the region of concern. COMPARISON: None FINDINGS: Prevoid 104 mL. Bladder is distended appearing bladder wall measures 2 mm. Bilateral ureteral jets identified. IMPRESSION: 1. Normal sonographic appearance of the bladder.
[2025-07-24] MEDS: METOCLOPRAMIDE HCL 5MG/ml INJ 2ml VIAL IV PRN (19:04)
[2025-07-24 20:26] VITALS: PULSE 88; RESP 16; O2SAT 97
[2025-07-24 21:00] VITALS: BP 136/76; PULSE 77; RESP 18; TEMP 97.7; O2SAT 97
[2025-07-24 21:11] LABS: INR 0.99 (0.9-1.15); Partial Thromboplastin Time 27.9 SEC (24.5-34.5); Prothrombin Time 10.5 sec (9.3-11.8)
[2025-07-25] VITALS (7 sets, daily range): BP systolic 120–140; BP diastolic 70–91; PULSE 70–94; RESP 18–20; TEMP 97.9–98.9; O2SAT 95–98
[2025-07-25 07:30] LABS: Hematocrit 39.5 % (36.0-46.0); Hemoglobin 13.5 g/dL (12.2-16.2); Mean Corpuscular Hemoglobin 30.4 pg (28.0-32.0); Mean Corpuscular Volume 89.1 fL (80.0-100.0); Nucleated Red Blood Cells % 0.1 %
[2025-07-25 08:15] LABS: Alkaline Phosphatase 62 U/L (46-116); BUN/Creatinine Ratio 8.4 (10.0-20.0); Carbon Dioxide 22 mmol/L (20-31); Glucose 92 mg/dL (74-106)
[2025-07-25 08:16] LABS: Total Protein 6.6 g/dL (5.7-8.2)
[2025-07-25 08:17] LABS: Albumin 3.9 g/dL (3.2-4.8); Bilirubin, Total 0.4 mg/dL (0.2-1.0)
[2025-07-25 08:21] LABS: Alanine Aminotransferase 46 U/L (7-40); Blood Urea Nitrogen 7 mg/dL (9-23); Calcium 8.6 mg/dL (8.7-10.4)
[2025-07-25 08:50] LABS: Anion Gap 11 (5-15); Chloride 111 mmol/L (98-107); Potassium 4.1 mmol/L (3.5-5.1); Sodium 144 mmol/L (136-145)
[2025-07-25] MEDS: ENALAPRIL MALEATE 10 MG TAB PO SCH (10:55)
--- NOTE | 2025-07-25 12:42 | DVHPN2 ---
Reviewed: Care Plan, H&P, Labs, Medications, Previous Orders, Radiology Changes from previous H/P or p: No Changes Eyes: No Pain, No Vision change, No Conjunctivae inflammation, No Eyelid inflammation, No Other, No Redness ENT: No Ear pain, No Ear discharge, No Nose pain, No Nose discharge, No Nose congestion, No Mouth pain, No Mouth swelling, No Throat pain, No Throat swelling, No Other Cardiovascular: No Chest Pain, No Palpitations, No Orthopnea, No Paroxysmal Noc. Dyspnea, No Edema, No Lt Headedness, No Other Respiratory: No Cough, No Dry, No Shortness of breath, No SOB with excertion, No Wheezing, No Hemoptysis, No Pleuritic Pain, No Sputum, No Other Gastrointestinal: No Nausea, No Vomiting; Abdominal Pain (pelvic); No Diarrhea, No Constipation, No Melena, No Hematochezia, No Other Genitourinary: No Dysuria, No Frequency, No Incontinence, No Hematuria, No Retention, No Other Musculoskeletal: No other, No neck pain, No shoulder pain, No arm pain; back pain (right flank); No hand pain, No leg pain, No foot pain Skin: No Rash, No Lesions, No Jaundice, No Bruising, No Other Objective Vitals Vital Signs Date Time Temp Pulse Resp B/P (MAP) Pulse Ox O2 Delivery O2 Flow Rate FiO2 07/25/25 10:55 126/59 07/25/25 09:00 98.7 70 20 97 98.7 07/24/25 20:26 Room Air* 0 21 Intake/Output Intake and Output 07/25/25 07:00 Intake Total 1575 ml Balance 1575 ml Intake Oral 525 ml IV Total 1050 ml # Voids 4 Medications Current Medications Medications Dose Ordered Sig/Mallory Route Start Time Stop Time Status Last Admin Dose Admin Acetaminophen/ Hydrocodone Bitart 1 tab Q4HP PRN PO 07/24/25 10:45 Ondansetron HCl 4 mg Q4HP PRN IV 07/24/25 10:45 Acetaminophen 650 mg Q6HP PRN PO 07/24/25 10:45 Enalapril Maleate 10 mg DAILY PO 07/25/25 10:00 07/25/25 10:55 10 MG Patient Own Medication 0.5 tab DAILY PO 07/25/25 10:00 Ceftriaxone Sodium 50 ml @ 100 mls/hr DAILY@09 IV 07/25/25 09:00 07/25/25 11:00 100 MLS/HR Sodium Chloride 1,000 ml @ 125 mls/hr Q8H IV 07/24/25 11:00 07/25/25 11:08 125 MLS/HR Tamsulosin HCl 0.4 mg QPM PO 07/25/25 18:00 Metoclopramide HCl 10 mg Q6HPRN PRN IV 07/24/25 11:00 07/24/25 19:04 10 MG Ketorolac Tromethamine 15 mg Q6HPRN PRN IV 07/24/25 11:00 07/29/25 10:59 Laboratory Results Laboratory Tests 07/25/25 06:08 Chemistry Test 07/25/25 06:08 Albumin 3.9 g/dL (3.2-4.8) Calcium Level 8.6 mg/dL (8.7-10.4) L Total Protein 6.6 g/dL (5.7-8.2) Coagulation Test 07/24/25 20:43 Prothrombin Time 10.5 sec (9.3-11.8) Prothrombin Time INR 0.99 (0.9-1.15) Activated Partial Thromboplast Time 27.9 SEC (24.5-34.5) LFT Test 07/25/25 06:08 Alanine Aminotransferase (ALT) 46 U/L (7-40) H Alkaline Phosphatase 62 U/L (46-116) Aspartate Amino Transferase (AST) 27 U/L (13-40) Total Bilirubin 0.4 mg/dL (0.2-1.0) Urinalysis Test 07/24/25 03:56 Urine Color Yellow (Yellow) Urine Clarity Turbid (Clear) H Urine pH 5.5 (5.0-9.0) Urine Specific [place] 1.030 (1.001-1.035) Urine Protein Trace (Negative) H Urine Ketones Negative (Negative) Urine Blood Trace /uL (Negative) H Urine Nitrite Negative (Negative) Urine Bilirubin Negative (Negative) Urine Urobilinogen Normal mg/dL (Negative) Urine Leukocyte Esterase Negative /uL (Negative) Urine RBC 5 /hpf (0 - 4) Urine Microscopic WBC 5 /HPF (0-5) Urine Squamous Epithelial Cells Mod /hpf (<5) Urine Bacteria None seen /hpf (None Seen) Urine Mucus Few (None Seen) Urine Glucose Normal mg/dL (Normal) Urine Test Negative (Negative) Labs and/or images reviewed: Labs reviewed by me, Image(s) reviewed by me Assessment/Plan Assessment/Plan Acute right flank pain 8 mm right proximal ureteral stone with hydronephrosis: Consult for Urology appreciated, planning for ESWL Saturday,. 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
[2025-07-25] MEDS: TAMSULOSIN HYDROCHLORIDE 0.4 MG CAP PO SCH (18:19)
[2025-07-25] MEDS: KETOROLAC TROMETH 30 MG/ML 1ML VIAL IV PRN (23:59)
[2025-07-26] VITALS (9 sets, daily range): BP systolic 130–150; BP diastolic 68–93; PULSE 59–93; RESP 11–19; TEMP 98.1–98.9; O2SAT 92–99
[2025-07-26] MEDS: ONDANSETRON HCL 4 MG/2 ML VIAL IV PRN (09:53)
--- NOTE | 2025-07-26 12:52 | DVHPN2 ---
Reviewed: Care Plan, H&P, Labs, Medications, Previous Orders, Radiology Changes from previous H/P or p: No Changes Eyes: No Pain, No Vision change, No Conjunctivae inflammation, No Eyelid inflammation, No Other, No Redness ENT: No Ear pain, No Ear discharge, No Nose pain, No Nose discharge, No Nose congestion, No Mouth pain, No Mouth swelling, No Throat pain, No Throat swelling, No Other Cardiovascular: No Chest Pain, No Palpitations, No Orthopnea, No Paroxysmal Noc. Dyspnea, No Edema, No Lt Headedness, No Other Respiratory: No Cough, No Dry, No Shortness of breath, No SOB with excertion, No Wheezing, No Hemoptysis, No Pleuritic Pain, No Sputum, No Other Gastrointestinal: No Nausea, No Vomiting; Abdominal Pain (pelvic); No Diarrhea, No Constipation, No Melena, No Hematochezia, No Other Genitourinary: No Dysuria, No Frequency, No Incontinence, No Hematuria, No Retention, No Other Musculoskeletal: No other, No neck pain, No shoulder pain, No arm pain; back pain (right flank); No hand pain, No leg pain, No foot pain Skin: No Rash, No Lesions, No Jaundice, No Bruising, No Other Objective Vitals Vital Signs Date Time Temp Pulse Resp B/P (MAP) Pulse Ox O2 Delivery O2 Flow Rate FiO2 07/26/25 09:52 130/68 07/26/25 08:05 74 18 96 Room Air* 0 21 07/26/25 06:00 98.2 98.2 Intake/Output Intake and Output 07/26/25 07:00 Intake Total 3900 ml Balance 3900 ml Intake Oral 2400 ml IV Total 1500 ml # Voids 8 # Bowel Movements 2 Medications Current Medications Medications Dose Ordered Sig/Mallory Route Start Time Stop Time Status Last Admin Dose Admin Acetaminophen/ Hydrocodone Bitart 1 tab Q4HP PRN PO 07/24/25 10:45 Ondansetron HCl 4 mg Q4HP PRN IV 07/24/25 10:45 07/26/25 09:53 4 MG Acetaminophen 650 mg Q6HP PRN PO 07/24/25 10:45 Enalapril Maleate 10 mg DAILY PO 07/25/25 10:00 07/26/25 09:52 10 MG Patient Own Medication 0.5 tab DAILY PO 07/25/25 10:00 Ceftriaxone Sodium 50 ml @ 100 mls/hr DAILY@09 IV 07/25/25 09:00 07/26/25 09:51 100 MLS/HR Sodium Chloride 1,000 ml @ 125 mls/hr Q8H IV 07/24/25 11:00 07/26/25 02:01 125 MLS/HR Tamsulosin HCl 0.4 mg QPM PO 07/25/25 18:00 07/25/25 18:19 0.4 MG Metoclopramide HCl 10 mg Q6HPRN PRN IV 07/24/25 11:00 07/24/25 19:04 10 MG Ketorolac Tromethamine 15 mg Q6HPRN PRN IV 07/24/25 11:00 07/29/25 10:59 07/26/25 09:53 15 MG Laboratory Results Laboratory Tests 07/25/25 06:08 Urinalysis Test 07/24/25 03:56 Urine Color Yellow (Yellow) Urine Clarity Turbid (Clear) H Urine pH 5.5 (5.0-9.0) Urine Specific [place] 1.030 (1.001-1.035) Urine Protein Trace (Negative) H Urine Ketones Negative (Negative) Urine Blood Trace /uL (Negative) H Urine Nitrite Negative (Negative) Urine Bilirubin Negative (Negative) Urine Urobilinogen Normal mg/dL (Negative) Urine Leukocyte Esterase Negative /uL (Negative) Urine RBC 5 /hpf (0 - 4) Urine Microscopic WBC 5 /HPF (0-5) Urine Squamous Epithelial Cells Mod /hpf (<5) Urine Bacteria None seen /hpf (None Seen) Urine Mucus Few (None Seen) Urine Glucose Normal mg/dL (Normal) Urine Test Negative (Negative) Labs and/or images reviewed: Labs reviewed by me, Image(s) reviewed by me Assessment/Plan Assessment/Plan Acute right flank pain 8 mm right proximal ureteral stone with hydronephrosis: Consult for Urology appreciated, planning for ESWL today,. 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
[2025-07-26] MEDS ORDERED: MEPERIDINE HCL (25 MG/ML) 1ML VIAL ONE (15:48)
[2025-07-26] MEDS ORDERED: fentaNYL CITRATE 100 MCG/2 ML VL ONE (15:49)
[2025-07-26] MEDS ORDERED: LIDOCAINE 2% (LOCAL ANESTH.) PF 5ml SDV ONE (15:49)
[2025-07-26] MEDS ORDERED: MIDAZOLAM HCL 2MG/2ML 2ml VIAL (1mg/ml) ONE (15:49)
[2025-07-26] MEDS ORDERED: KETOROLAC TROMETH 30 MG/ML 1ML VIAL ONE (15:49)
[2025-07-26] MEDS ORDERED: PROPOFOL 10 MG/ML 20 ML IV ONE (15:49)
[2025-07-26] MEDS ORDERED: GLYCOPYRROLATE 0.2 MG/ML 1ML VIAL ONE (15:49)
[2025-07-26] MEDS ORDERED: ONDANSETRON HCL 4 MG/2 ML VIAL ONE (15:49)
[2025-07-26] MEDS: IOHEXOL 300 MG/ML 100ML BOTTLE IJ ONE (15:58)
[2025-07-26] MEDS ORDERED: HYDROmorphone HCL 2 MG/ML VL/or syr ONE (16:41)
[2025-07-26] MEDS: CIPROFLOXACIN 400MG/200ML 200 ML IV ONE (17:00)
[2025-07-26] MEDS ORDERED: SUGAMMADEX 200mg/2ml Vial (100MG/ML) IV ONE (17:04)
--- NOTE | 2025-07-26 17:21 | DVHNC2 ---
Procedure - OPERATIVE REPORT Pre-op. Diagnosis: Ureteral Stone - RIGHT, 8 mm Hydronephrosis - RIGHT Flank Pain - RIGHT Post-op. Diagnosis: Same as pre-op diagnosis Operation: Extracorporeal Shockwave Lithotripsy - RIGHT Cystoscopy, Ureteral stent placement - RIGHT Anesthesia: General Indications: Informed Consent: Options were discussed. Treatments can include conservative therapy, Extra-corporeal shockwave therapy (ESWL), Ureteroscopy with laser lithotripsy vs extraction, PCNL (percutaneous nephrolithotomy); with or without the use of Stents or retrograde pyelography. Corresponding advantages and disadvantages were also discussed. Questions were addressed. Patient wishes to proceed with right ESWL and cystoscopy with right ureteral stent placement. Risks and benefits of the surgery were reviewed with patient which include but are not limited to infection, bleeding, urosepsis, renal hemorrhage/hematoma formation, ureteral perforation, ureteral stricture formation and need for further surgery if stone does not break, ureteral obstruction from stone fragments, cardiac arrthymia and risks of anesthesia. Despite these risks, patient wishes to proceed with the surgery. Details of Procedure: Under satisfactory anesthesia, the patient was positioned on the lithotripsy table. Using fluoroscopy the stone was localized. Patient was then positioned in the dorsal lithotomy and cystoscopy was performed. The right ureteral orifice was cannulated with a sensoer tip guidewire and advanced into the right renal pelvis under fluroscopy. A 5x24 PL right Ureteral stent was then placed over the wire under Fluoroscopic and cystoscopic guidance. The bladder was emptied with alvarenga placement and the cystoscope was taken out. We then positioned the patient accordingly, identified the stone and began extra-corporeal shockwave lithotripsy. Starting at low energy levels, shockwave treatment was commenced. The energy level was gradually increased and stone was fragmented. The patient was then taken off the lithotripsy table and sent to recovery room in stable condition. Specimens: None Complications: None Findings: Stone Laterality: Right Stone Location: proximal ureteral stone manipulated into the right renal pelvis Shocks Delivered: 2400 Max Power settin Fragmentation Quality: Well Ureteral stent size & length: 5x24 PL right ureteral stent Notes: Stent removal in 2 weeks F/U in 2 weeks SIDDHARTHA PENNY MD Jul 26, 2025 17:21
[2025-07-26] MEDS: ACETAMINOPHEN IV 100 ML IV ONE (17:57)
[2025-07-26] MEDS ORDERED: HYDROmorphone HCL 2 MG/ML VL/or syr IV PRN (18:00)
[2025-07-26] MEDS ORDERED: ONDANSETRON HCL 4 MG/2 ML VIAL IV PRN (18:00)
[2025-07-26] MEDS: ACETAMINOPHEN IV 1000 MG/100ML (10MG/ML) IV ONE (18:08)
[2025-07-26] MEDS: HYDROcodone-ACET 5/325MG TAB PO PRN (21:00)
[2025-07-27] VITALS (7 sets, daily range): BP systolic 115–158; BP diastolic 60–94; PULSE 62–85; RESP 16–20; TEMP 98.3–98.8; O2SAT 95–96
--- NOTE | 2025-07-27 08:30 | DVHPN2 ---
Progress Note - Dictate Date Seen: Jul 27, 2025 Has the PT tested + for MRSA If YES, has PT been informed?: No Medical Necessity Reason Pt with a Central, PICC or Fol: Yes The following are medically ne: Carrillo Catheter Medical Necessity Reason Postop day 1. Status post right ESWL with stent placement Subjective Complains of nausea and dizziness. She is tolerating the Carrillo catheter. vital signs Vital Sign Date Time Temp Pulse Resp B/P (MAP) Pulse Ox O2 Delivery O2 Flow Rate FiO2 07/27/25 07:58 98.8 62 18 158/94 (115) 95 98.8 07/26/25 19:55 Room Air* 0 21 Total Intake and Output 07/26/25 07/26/25 07/27/25 15:00 23:00 07:00 Intake Total 550 ml 200 ml 2820 ml Output Total 1200 ml 2950 ml Balance 550 ml -1000 ml -130 ml medications Current Medications Medications Dose Ordered Sig/Mallory Route Start Time Stop Time Status Last Admin Dose Admin Acetaminophen/ Hydrocodone Bitart 1 tab Q4HP PRN PO 07/24/25 10:45 07/27/25 06:22 1 TAB Ondansetron HCl 4 mg Q4HP PRN IV 07/24/25 10:45 07/26/25 20:51 4 MG Acetaminophen 650 mg Q6HP PRN PO 07/24/25 10:45 Enalapril Maleate 10 mg DAILY PO 07/25/25 10:00 07/26/25 09:52 10 MG Patient Own Medication 0.5 tab DAILY PO 07/25/25 10:00 Ceftriaxone Sodium 50 ml @ 100 mls/hr DAILY@09 IV 07/25/25 09:00 07/26/25 09:51 100 MLS/HR Sodium Chloride 1,000 ml @ 125 mls/hr Q8H IV 07/24/25 11:00 07/27/25 00:30 125 MLS/HR Tamsulosin HCl 0.4 mg QPM PO 07/25/25 18:00 07/26/25 19:12 0.4 MG Metoclopramide HCl 10 mg Q6HPRN PRN IV 07/24/25 11:00 07/24/25 19:04 10 MG Ketorolac Tromethamine 15 mg Q6HPRN PRN IV 07/24/25 11:00 07/29/25 10:59 07/26/25 09:53 15 MG objective Urine is pinkish in the catheter laboratory and microbiology Laboratory Tests 07/25/25 06:08 Test 07/25/25 06:08 Range/Units Serum Glucose 92 74-106 mg/dL Problem List Right ureteral calculus status post lithotripsy and stent placement Assessment/Plan DC Carrillo when clear and may discharge home when stable. Follow up in two weeks with [facility] Plan discussed with: Patient, Other SIDDHARTHA PENNY MD Jul 27, 2025 08:30
--- NOTE | 2025-07-27 10:23 | DVHPN2 ---
Reviewed: Care Plan, H&P, Labs, Medications, Previous Orders, Radiology Changes from previous H/P or p: No Changes Eyes: No Pain, No Vision change, No Conjunctivae inflammation, No Eyelid inflammation, No Other, No Redness ENT: No Ear pain, No Ear discharge, No Nose pain, No Nose discharge, No Nose congestion, No Mouth pain, No Mouth swelling, No Throat pain, No Throat swelling, No Other Cardiovascular: No Chest Pain, No Palpitations, No Orthopnea, No Paroxysmal Noc. Dyspnea, No Edema, No Lt Headedness, No Other Respiratory: No Cough, No Dry, No Shortness of breath, No SOB with excertion, No Wheezing, No Hemoptysis, No Pleuritic Pain, No Sputum, No Other Gastrointestinal: No Nausea, No Vomiting; Abdominal Pain (pelvic); No Diarrhea, No Constipation, No Melena, No Hematochezia, No Other Genitourinary: No Dysuria, No Frequency, No Incontinence, No Hematuria, No Retention, No Other Musculoskeletal: No other, No neck pain, No shoulder pain, No arm pain; back pain (right flank); No hand pain, No leg pain, No foot pain Skin: No Rash, No Lesions, No Jaundice, No Bruising, No Other Objective Vitals Vital Signs Date Time Temp Pulse Resp B/P (MAP) Pulse Ox O2 Delivery O2 Flow Rate FiO2 07/27/25 08:28 158/94 07/27/25 07:58 98.8 62 18 95 98.8 07/26/25 19:55 Room Air* 0 21 Intake/Output Intake and Output 07/27/25 07:00 Intake Total 3570 ml Output Total 4150 ml Balance -580 ml Intake Oral 1100 ml IV Total 2470 ml Output Urine Total 4150 ml # Voids 3 Medications Current Medications Medications Dose Ordered Sig/Mallory Route Start Time Stop Time Status Last Admin Dose Admin Acetaminophen/ Hydrocodone Bitart 1 tab Q4HP PRN PO 07/24/25 10:45 07/27/25 06:22 1 TAB Ondansetron HCl 4 mg Q4HP PRN IV 07/24/25 10:45 07/27/25 08:28 4 MG Acetaminophen 650 mg Q6HP PRN PO 07/24/25 10:45 Enalapril Maleate 10 mg DAILY PO 07/25/25 10:00 07/27/25 08:28 10 MG Patient Own Medication 0.5 tab DAILY PO 07/25/25 10:00 Ceftriaxone Sodium 50 ml @ 100 mls/hr DAILY@09 IV 07/25/25 09:00 07/27/25 08:27 100 MLS/HR Sodium Chloride 1,000 ml @ 125 mls/hr Q8H IV 07/24/25 11:00 07/27/25 08:29 125 MLS/HR Tamsulosin HCl 0.4 mg QPM PO 07/25/25 18:00 07/26/25 19:12 0.4 MG Metoclopramide HCl 10 mg Q6HPRN PRN IV 07/24/25 11:00 07/24/25 19:04 10 MG Ketorolac Tromethamine 15 mg Q6HPRN PRN IV 07/24/25 11:00 07/29/25 10:59 07/26/25 09:53 15 MG Laboratory Results Laboratory Tests 07/25/25 06:08 Urinalysis Test 07/24/25 03:56 Urine Color Yellow (Yellow) Urine Clarity Turbid (Clear) H Urine pH 5.5 (5.0-9.0) Urine Specific [place] 1.030 (1.001-1.035) Urine Protein Trace (Negative) H Urine Ketones Negative (Negative) Urine Blood Trace /uL (Negative) H Urine Nitrite Negative (Negative) Urine Bilirubin Negative (Negative) Urine Urobilinogen Normal mg/dL (Negative) Urine Leukocyte Esterase Negative /uL (Negative) Urine RBC 5 /hpf (0 - 4) Urine Microscopic WBC 5 /HPF (0-5) Urine Squamous Epithelial Cells Mod /hpf (<5) Urine Bacteria None seen /hpf (None Seen) Urine Mucus Few (None Seen) Urine Glucose Normal mg/dL (Normal) Urine Test Negative (Negative) Labs and/or images reviewed: Labs reviewed by me, Image(s) reviewed by me Assessment/Plan Assessment/Plan Acute right flank pain 8 mm right proximal ureteral stone with hydronephrosis: Status post Right ureteral calculus lithotripsy and stent placement by urology Dr. 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
[2025-07-27] MEDS ORDERED: ROCURONIUM 10MG/ML 10ML VIAL IV ONE (13:44)
[2025-07-27] MEDS ORDERED: KETAMINE 50mg/ML 1ml syringe IV ONE (13:45)
[2025-07-28 00:44] VITALS: BP 133/84; PULSE 81; RESP 18; TEMP 98.3; O2SAT 97
[2025-07-28 00:52] VITALS: BP 133/84; PULSE 81; RESP 18; TEMP 98.3; O2SAT 97
[2025-07-28 05:00] VITALS: BP 133/80; PULSE 72; RESP 18; TEMP 98.2; O2SAT 95
[2025-07-28 08:00] VITALS: PULSE 62; RESP 18; O2SAT 95
[2025-07-28 09:00] VITALS: BP 135/83; PULSE 62; RESP 18; TEMP 98.1; O2SAT 95
--- NOTE | 2025-07-28 10:10 | DVHPN2 ---
Reviewed: Care Plan, H&P, Labs, Medications, Previous Orders, Radiology Changes from previous H/P or p: No Changes Eyes: No Pain, No Vision change, No Conjunctivae inflammation, No Eyelid inflammation, No Other, No Redness ENT: No Ear pain, No Ear discharge, No Nose pain, No Nose discharge, No Nose congestion, No Mouth pain, No Mouth swelling, No Throat pain, No Throat swelling, No Other Cardiovascular: No Chest Pain, No Palpitations, No Orthopnea, No Paroxysmal Noc. Dyspnea, No Edema, No Lt Headedness, No Other Respiratory: No Cough, No Dry, No Shortness of breath, No SOB with excertion, No Wheezing, No Hemoptysis, No Pleuritic Pain, No Sputum, No Other Gastrointestinal: No Nausea, No Vomiting; Abdominal Pain (pelvic); No Diarrhea, No Constipation, No Melena, No Hematochezia, No Other Genitourinary: No Dysuria, No Frequency, No Incontinence, No Hematuria, No Retention, No Other Musculoskeletal: No other, No neck pain, No shoulder pain, No arm pain; back pain (right flank); No hand pain, No leg pain, No foot pain Skin: No Rash, No Lesions, No Jaundice, No Bruising, No Other Objective Vitals Vital Signs Date Time Temp Pulse Resp B/P (MAP) Pulse Ox O2 Delivery O2 Flow Rate FiO2 07/28/25 09:00 98.1 62 18 135/83 (100) 95 98.1 07/28/25 08:00 Room Air* 0 21 Intake/Output Intake and Output 07/28/25 07:00 Intake Total 2290 ml Output Total 2750 ml Balance -460 ml Intake Oral 1240 ml IV Total 1050 ml Output Urine Total 2750 ml Medications Current Medications Medications Dose Ordered Sig/Mallory Route Start Time Stop Time Status Last Admin Dose Admin Acetaminophen/ Hydrocodone Bitart 1 tab Q4HP PRN PO 07/24/25 10:45 07/27/25 06:22 1 TAB Ondansetron HCl 4 mg Q4HP PRN IV 07/24/25 10:45 07/27/25 08:28 4 MG Acetaminophen 650 mg Q6HP PRN PO 07/24/25 10:45 Enalapril Maleate 10 mg DAILY PO 07/25/25 10:00 07/28/25 08:14 10 MG Patient Own Medication 0.5 tab DAILY PO 07/25/25 10:00 Ceftriaxone Sodium 50 ml @ 100 mls/hr DAILY@09 IV 07/25/25 09:00 07/28/25 08:13 100 MLS/HR Sodium Chloride 1,000 ml @ 125 mls/hr Q8H IV 07/24/25 11:00 07/28/25 06:52 125 MLS/HR Tamsulosin HCl 0.4 mg QPM PO 07/25/25 18:00 07/27/25 17:20 0.4 MG Metoclopramide HCl 10 mg Q6HPRN PRN IV 07/24/25 11:00 07/24/25 19:04 10 MG Ketorolac Tromethamine 15 mg Q6HPRN PRN IV 07/24/25 11:00 07/29/25 10:59 07/27/25 17:20 15 MG Laboratory Results Laboratory Tests 07/25/25 06:08 Urinalysis Test 07/24/25 03:56 Urine Color Yellow (Yellow) Urine Clarity Turbid (Clear) H Urine pH 5.5 (5.0-9.0) Urine Specific [place] 1.030 (1.001-1.035) Urine Protein Trace (Negative) H Urine Ketones Negative (Negative) Urine Blood Trace /uL (Negative) H Urine Nitrite Negative (Negative) Urine Bilirubin Negative (Negative) Urine Urobilinogen Normal mg/dL (Negative) Urine Leukocyte Esterase Negative /uL (Negative) Urine RBC 5 /hpf (0 - 4) Urine Microscopic WBC 5 /HPF (0-5) Urine Squamous Epithelial Cells Mod /hpf (<5) Urine Bacteria None seen /hpf (None Seen) Urine Mucus Few (None Seen) Urine Glucose Normal mg/dL (Normal) Urine Test Negative (Negative) Labs and/or images reviewed: Labs reviewed by me, Image(s) reviewed by me Assessment/Plan Assessment/Plan Acute right flank pain 8 mm right proximal ureteral stone with hydronephrosis: Status post Right ureteral calculus lithotripsy and stent placement by urology Dr. 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
[2025-07-28] MEDS ORDERED: TRAM-626 PO (10:12)
[2025-07-28] MEDS ORDERED: TAMS-35 PO (10:12)
[2025-07-28] MEDS ORDERED: CIPR-173 PO (10:12)
--- NOTE | 2025-07-28 10:15 | DVHDS2 ---
Discharge Summary Date of Admission Jul 24, 2025 at 10:42 Date of Discharge: Jul 28, 2025 Admitting Diagnosis Right flank pain Wounds: ESWL cystoscopy right ureteral stent placed Labs/Diagnostic Data: Laboratory Results Test 07/25/25 06:08 07/24/25 20:43 07/24/25 03:56 07/24/25 03:17 White Blood Count 8.7 10^3/uL (4.4-10.8) Red Blood Count 4.43 10^6/uL (4.0-5.20) Hemoglobin 13.5 g/dL (12.2-16.2) Hematocrit 39.5 % (36.0-46.0) Mean Corpuscular Volume 89.1 fL (80.0-100.0) Mean Corpuscular Hemoglobin 30.4 pg (28.0-32.0) Mean Corpuscular Hemoglobin Concent 34.1 g/dL (32.0-36.0) Red Cell Distribution Width 12.3 % (11.8-14.3) Platelet Count 258 10^3/uL (140-450) Mean Platelet Volume 9.2 fL (6.9-10.8) Neutrophils (%) (Auto) 57.0 % (37.0-80.0) Lymphocytes (%) (Auto) 32.3 % (10.0-50.0) Monocytes (%) (Auto) 8.9 % (0.0-12.0) Eosinophils (%) (Auto) 1.4 % (0.0-7.0) Basophils (%) (Auto) 0.4 % (0.0-2.0) Neutrophils # (Auto) 5.0 10 ^3/uL (1.6-8.6) Lymphocytes # (Auto) 2.8 10 ^3/uL (0.4-5.4) Monocytes # (Auto) 0.8 10 ^3/uL (0-1.3) Eosinophils # (Auto) 0.1 10 ^3/uL (0-0.8) Basophils # (Auto) 0 10 ^3/uL (0-0.2) Nucleated Red Blood Cells 0.1 % Sodium Level 144 mmol/L (136-145) Potassium Level 4.1 mmol/L (3.5-5.1) Chloride Level 111 mmol/L (98-107) Carbon Dioxide Level 22 mmol/L (20-31) Anion Gap 11 (5-15) Blood Urea Nitrogen 7 mg/dL (9-23) Creatinine 0.83 mg/dL (0.550-1.02) Glomerular Filtration Rate Calc 95 mL/min (>90) BUN/Creatinine Ratio 8.4 (10.0-20.0) Serum Glucose 92 mg/dL (74-106) Calcium Level 8.6 mg/dL (8.7-10.4) Total Bilirubin 0.4 mg/dL (0.2-1.0) Aspartate Amino Transferase (AST) 27 U/L (13-40) Alanine Aminotransferase (ALT) 46 U/L (7-40) Alkaline Phosphatase 62 U/L (46-116) Total Protein 6.6 g/dL (5.7-8.2) Albumin 3.9 g/dL (3.2-4.8) Prothrombin Time 10.5 sec (9.3-11.8) Prothrombin Time INR 0.99 (0.9-1.15) Activated Partial Thromboplast Time 27.9 SEC (24.5-34.5) Urine Color Yellow (Yellow) Urine Clarity Turbid (Clear) Urine pH 5.5 (5.0-9.0) Urine Specific [place] 1.030 (1.001-1.035) Urine Protein Trace (Negative) Urine Ketones Negative (Negative) Urine Blood Trace /uL (Negative) Urine Nitrite Negative (Negative) Urine Bilirubin Negative (Negative) Urine Urobilinogen Normal mg/dL (Negative) Urine Leukocyte Esterase Negative /uL (Negative) Urine RBC 5 /hpf (0 - 4) Urine Microscopic WBC 5 /HPF (0-5) Urine Squamous Epithelial Cells Mod /hpf (<5) Urine Bacteria None seen /hpf (None Seen) Urine Mucus Few (None Seen) Urine Glucose Normal mg/dL (Normal) Urine Test Negative (Negative) Lactic Acid Level 1.6 mmol/L (0.4-2.0) Other Laboratory Tests 07/25/25 06:08 Brief Hx & Hospital Course: 35-year-old female came in for right flank pain found to have 8 mm right proximal ureteral stone with hydronephrosis underwent right ureteral calculus lithotripsy and stent placement by Urology Dr. Soto on 07/26/2025 mild UTI treated with Rocephin patient feels better and wants to go home. Discharged home on Cipro Flomax and tramadol. She will follow up with the Urology in two weeks Consults/Reason for consult Urology Dr. Soto Operations or Procedures Cystoscopy ESWL right ureteral stent placement Condition at Discharge: Fair Final Diagnosis/Problems List Discharge Disposition: Home Discharge Instruct/Medications Diet: Regular Activity: Light activity Follow Up/Referral: Follow up with the Urology Dr. Soto in two weeks Medications: Cipro Flomax Tramadol Transmitted to pharmacy Scheduled Ciprofloxacin Hcl (Cipro), 1 TAB PO BID Enalapril Maleate (Enalapril Maleate), 10 MG PO DAILY, (Reported) Tamsulosin Hcl (Flomax), 1 CAP PO DAILY Scheduled PRN Bisoprolol Fumarate (Bisoprolol Fumarate), 0.5 TAB PO DAILY PRN, (Reported) Tramadol HCl (Tramadol HCl), 50 MG PO QID PRN 39 (Time taken for discharge summary 39 minutes) Discharge Statement: "Patient was advised to return to the ER or call 911 if any headaches, dizziness, shortness of breath, chest pain, abdominal pain, bleeding, fevers, or worsening of medical condition. Patient was counseled about treatment plan, medications, possible side effects, patientverbalized understanding. All questions were answered to the best of my ability. This discharge took greater then 30 minutes in planning, reviewing documentation, counseling the patient, and discussing with other team members." ASSESSMENT ASSESSMENT Hospital Course Improved Assessment 1. Multilevel disc degeneration. Multilevel spinal canal stenosis, most pronounced and moderate at L4-L5. Multilevel subarticular zone stenosis, most pronounced and severe at L4-L5 with bilateral descending L5 nerve root compression. Multilevel foraminal stenosis, most pronounced and mild at L4-L5. Date of Service: Jul 28, 2025 Billing Provider: PAM WYNN MD Common Visit Codes: [id number] DISCH DAY >30min PAM WYNN MD Jul 28, 2025 10:15
[2025-07-28 11:05] VITALS: BP 135/83; TEMP 36.7
== END 2025-07-28 12:11 | disposition home or self-care (01) | DRG 720 ==
LOC: ER 02:55 → OVERFLOW 10:42 → WEST WING 19:57
PROVIDERS: ADMIT Family Medicine; ATTEND Family Medicine
PROC: 0TF3XZZ Fragmentation in Right Kidney Pelvis, External Approach (ICD-10-PCS; 2025-07-26)
PROC: 0TF6XZZ Fragmentation in Right Ureter, External Approach (ICD-10-PCS; 2025-07-26)
PROC: 0T768DZ Dilation of Right Ureter with Intraluminal Device, Via Natural or Artificial Opening Endoscopic (ICD-10-PCS; principal; 2025-07-26 16:16)
DX: A41.9 Sepsis, unspecified organism (principal); N13.6 Pyonephrosis; I10 Essential (primary) hypertension
CPT/HCPCS: 36415; 74176; 76857; 80053; 81001; 81025; 83605; 85025; 85610; 85730; 86850; 86900; 86901; 96374; 96375; G0378; J0131; J1100; J1885; J2003; J2250; J2405; J2704